=== PATIENT | male | born 1940 | race Caucasian/White ===

== ENCOUNTER 2016-06-26 08:54 | Emergency (ER) | payer OTHER ==
[~2016-06-26] VITALS: Ht 167.6 cm; Wt 91.0 kg
[~2016-06-26 08:54] MED LIST: FOLI1 PO; METO25 PO; SERT100 PO; TAMS0.4C67 PO; THIA100T PO; VITA100T15 PO
[2016-06-26 08:56] VITALS: BP 132/62; PULSE 82; RESP 15; TEMP 98; O2SAT 97
[2016-06-26] MEDS ORDERED: GABA100C4 PO (09:17)
[2016-06-26] MEDS ORDERED: VITA100L BUCCAL (09:17)
[2016-06-26] MEDS ORDERED: THIA100T PO (09:17)
[2016-06-26] MEDS ORDERED: TAMS5CAP PO (09:17)
[2016-06-26] MEDS ORDERED: LISI10TA3 PO (09:17)
[2016-06-26] MEDS ORDERED: ZOLO100T PO (09:17)
[2016-06-26] MEDS ORDERED: RESP: ALBUTEROL 2.5 MG/IPRATROPIUM 0.5 MG NEB (SCH) INH ONE (09:30)
[2016-06-26] MEDS ORDERED: methylPREDNISolone SOD SUCC 125 MG/2 ML VIAL IVP ONE (09:30)
[2016-06-26] MEDS ORDERED: SODIUM CHLORIDE 0.9% FLUSH 10 ML FLUSH IVF PRN (09:30)
[2016-06-26] MEDS: RESP: ALBUTEROL 2.5 MG/3 ML NEB (SCH) INH ×2 (09:39→09:40)
--- NOTE | 2016-06-26 09:40 | PD ---
HPI Chief Complaint: Respiratory Symptoms Time Seen by Provider: 09:26 Travel History International Travel<30 days: No Contact w/Intl Traveler<30days: No Traveled to known affect area: No History of Present Illness HPI Diagnoses a 76-year-old gentleman with a history of hypertension, bronchitis, who presents today with complaints of shortness of breath and cough. Patient states he's had five-day history of what he describes as feeling like he's had the flu. He's had congestion and hacking cough. He denies any fevers or chills but does report that he's had body aches. He states the cough is productive with clear yellow phlegm. He denies any chest pain or chest pressure. He denies true shortness of breath but does state that he feels himself wheezing. The patient denies any other symptoms at this time. PFSH Past Medical History Arthritis: Yes (LOWER ) Depression: Yes Cancer: No Cardiovascular Problems: Yes (HTN ) Diminished Hearing: No Endocrine: No Genitourinary: Yes Hypertension: Yes Kidney Stones: Yes Musculoskeletal: No Neurologic: No Psychiatric: Yes Reproductive: No Respiratory: No Past Surgical History Neurologic Surgery: Yes (LAMINECTOMY LUMBER) Tonsillectomy: Yes Other Surgery: Yes (LAMINECTOMY , ELBOW REPLACEMENT ) Social History Alcohol Use: Yes Tobacco Use: Yes Substance Use: No Allergies-Medications (Allergen,Severity, Reaction): Coded Allergies: No Known Allergies (Unverified , 06/26/16) Reported Meds & Prescriptions Reported Meds & Active Scripts Active Proair Hfa 8.5 GM Inh (Albuterol Sulfate) 90 Mcg/Act Aer 1 Puff INH Q4H PRN 108 mcg/actuation Zithromax Z-Gerardo (Azithromycin) 250 Mg Dspk 250 Mg PO DIRECTED 500 MG (2 tabs) day 1, then 1 tab days 2-5. Medrol Dosepak (Methylprednisolone) 4 Mg Dspk 4 Mg PO DIRECTED Per Pharmacist direction Guaifenesin AC Liq (Guaifenesin-Codeine Liq) 100-10 Mg/5 Ml Syrp 10 Ml PO Q6H PRN Reported Gabapentin 100 Mg Cap 100 Mg PO TID Thiamine (Thiamine HCl) 100 Mg Tab 100 Mg PO DAILY Flomax (Tamsulosin HCl) 0.4 Mg Cap 0.4 Mg PO HS Zoloft (Sertraline HCl) 100 Mg Tab 200 Mg PO HS Lisinopril 10 Mg Tab 10 Mg PO DAILY Vitamin B-12 (Cyanocobalamin) 100 Mcg Lozg 100 Mcg BUCCAL DAILY Review of Systems Except as stated in HPI: all other systems reviewed are Neg General / Constitutional: No: Fever, Chills HENT: Positive: Congestion, No: Headaches, Lightheadedness Cardiovascular: No: Chest Pain or Discomfort, Palpitations Respiratory: Positive: Cough (productive white), Wheezing, No: Shortness of Breath Gastrointestinal: No: Nausea, Vomiting, Abdominal Pain Musculoskeletal: Positive: Myalgias, Pain (body aches) Neurologic: No: Weakness, Dizziness Physical Exam Narrative GENERAL: Well-nourished, well-developed patient, in mild to moderate respiratory distress. SKIN: Focused skin assessment warm/dry. HEAD: Normocephalic/atraumatic. EYES: No scleral icterus. No injection or drainage. NECK: Supple, trachea midline. CARDIOVASCULAR: Regular rate and rhythm without murmurs, gallops, or rubs. RESPIRATORY: Diminished breath sounds bilaterally. Diffuse expiratory wheezes bilateral upper airway GASTROINTESTINAL: Abdomen soft, non-tender, nondistended. MUSCULOSKELETAL: No cyanosis, or edema. NEUROLOGICAL: Awake and alert. Cranial nerves II through XII intact. Motor grossly within normal limits. Five out of 5 muscle strength in all muscle groups. Normal speech. Data Data Last Documented VS Vital Signs Date Time Temp Pulse Resp B/P Pulse Ox O2 Delivery O2 Flow Rate FiO2 06/26/16 09:44 94 21 06/26/16 09:11 86 22 Room Air 06/26/16 08:56 98.0 132/62 Orders Complete Blood Count With Diff (06/26/16 09:30) Basic Metabolic Panel (Bmp) (06/26/16 09:30) Influenzae A/B Antigen (06/26/16 09:30) Iv Access Insert/Monitor (06/26/16 09:30) Ecg Monitoring (06/26/16 09:30) Oximetry (06/26/16 09:30) Oxygen Administration (06/26/16 09:30) Chest, Single Ap (06/26/16 09:30) Sodium Chloride 0.9% Flush (Ns Flush) (06/26/16 09:30) Methylprednisolone So Succ Inj (Solumedr (06/26/16 09:30) Albuterol-Ipratropium Neb (Duoneb Neb) (06/26/16 09:30) Albuterol Neb (Albuterol Neb) (06/26/16 09:30) Sodium Chlor 0.9% 1000 Ml Inj (Ns 1000 M (06/26/16 10:45) Labs Laboratory Tests Test 06/26/16 09:20 White Blood Count 6.5 TH/MM3 Red Blood Count 4.57 MIL/MM3 Hemoglobin 15.2 GM/DL Hematocrit 43.9 % Mean Corpuscular Volume 96.1 FL Mean Corpuscular Hemoglobin 33.4 PG Mean Corpuscular Hemoglobin 34.7 % Concent Red Cell Distribution Width 15.0 % Platelet Count 173 TH/MM3 Mean Platelet Volume 8.2 FL Neutrophils (%) (Auto) 80.9 % Lymphocytes (%) (Auto) 9.0 % Monocytes (%) (Auto) 9.6 % Eosinophils (%) (Auto) 0.2 % Basophils (%) (Auto) 0.3 % Neutrophils # (Auto) 5.2 TH/MM3 Lymphocytes # (Auto) 0.6 TH/MM3 Monocytes # (Auto) 0.6 TH/MM3 Eosinophils # (Auto) 0.0 TH/MM3 Basophils # (Auto) 0.0 TH/MM3 CBC Comment DIFF FINAL Differential Comment Sodium Level 129 MEQ/L Potassium Level 4.2 MEQ/L Chloride Level 95 MEQ/L Carbon Dioxide Level 25.3 MEQ/L Anion Gap 9 MEQ/L Blood Urea Nitrogen 15 MG/DL Creatinine 1.12 MG/DL Estimat Glomerular Filtration 64 ML/MIN Rate Random Glucose 103 MG/DL Calcium Level 8.8 MG/DL [facility] Medical Decision Making Medical Screen Exam Complete: Yes Emergency Medical Condition: Yes Differential Diagnosis Bronchitis versus pneumonia versus viral URI Narrative Course 76-year-old male presents with cough and congestion. Patient states he feels flulike. Patient did test positive for influenza B. He has 5 days in his course and so as out of the window for Tamiflu. He denies any fevers, chills. Chest x-ray shows no evidence of acute infiltrate. White blood cell counts within normal limits. Sodium was 129. Patient was given 1 L of normal saline. The patient has been given Solu-Medrol and nebulized treatments he's much improved. He'll be discharged with a Medrol Dosepak. He'll also be given a prescription for guaifenesin with codeine. He will also be given a prescription for an albuterol inhaler and Z-Gerardo. Diagnosis Primary Impression: Influenza B Additional Impression: Bronchitis Med/Other Pt SpecificInfo: Prescription(s) given Scripts Albuterol 8.5 GM Inh (Proair Hfa 8.5 GM Inh)90 Mcg/Act Aer1 Puff INH Q4H PRN ( SHORTNESS OF BREATH) #1 INHALER Ref 0 108 mcg/actuation Prov:Jhonathan Frye MD 06/26/16 Azithromycin (Zithromax Z-Gerardo)250 Mg [id number] Mg PO DIRECTED #1 DSPK Ref 0 500 MG (2 tabs) day 1, then 1 tab days 2-5. Prov:Jhonathan Frye MD 06/26/16 Methylprednisolone Dosepak (Medrol Dosepak)4 Mg Dspk4 Mg PO DIRECTED #1 DSPK Ref 0 Per Pharmacist direction Prov:Jhonathan Frye MD 06/26/16 Guaifenesin-Codeine Liq (Guaifenesin AC Liq)100-10 Mg/5 Ml Syrp10 Ml PO Q6H PRN (COUGH) #1 BOTTLE Ref 0 Prov:Jhonathan Frye MD 06/26/16 Disposition: 01 DISCHARGE HOME Condition: Stable Jhonathan Frye MD Jun 26, 2016 09:39
[2016-06-26 09:44] VITALS: O2SAT 94
[2016-06-26 09:44] LABS: AUTOMATED NEUTROPHIL # 5.2 TH/MM3 (1.8-7.7); BASOPHIL % 0.3 % (0.0-2.0); EOSINOPHIL % 0.2 % (0.0-4.0); HEMATOCRIT 43.9 % (39.0-51.0); HEMO FLAGS DIFF FINAL; LYMPHOCYTE # 0.6 TH/MM3 (1.0-4.8); MEAN CELL VOLUME 96.1 FL (80.0-100.0); MEAN CORPUSCULAR HEMOGLOBIN 33.4 PG (27.0-34.0); MEAN CORPUSCULAR HGB CONC 34.7 % (32.0-36.0); MONO % 9.6 % (0.0-8.0); NEUT % 80.9 % (16.0-70.0); PLATELET COUNT 173 TH/MM3 (150-450); RED BLOOD COUNT 4.57 MIL/MM3 (4.50-5.90); WHITE BLOOD COUNT 6.5 TH/MM3 (4.0-11.0)
--- NOTE | 2016-06-26 09:51 | RADRPT ---
EXAM DATE/TIME: 06/26/2016 09:32 [facility] COMPARISON: CHEST SINGLE AP, December 31, 2012, 19:02. INDICATIONS : Patient complains of cough and chest pain. MEDICAL HISTORY : None. SURGICAL HISTORY : None. ENCOUNTER: Initial ACUITY: 4 - 6 days PAIN SCORE: 4/10 LOCATION: Bilateral chest FINDINGS: A single view of the chest demonstrates the lungs to be symmetrically aerated without evidence of mas s, infiltrate or effusion. The cardiomediastinal contours are unremarkable. Severe arthritic changes are noted in the right shoulder.. CONCLUSION: No acute disease. Jerry Pinto MD on June 26, 2016 at 9:48 Board Certified Radiologist. This report was verified electronically.
[2016-06-26 09:54] LABS: BICARBONATE 25.3 MEQ/L (21.0-32.0); POTASSIUM 4.2 MEQ/L (3.5-5.1)
[2016-06-26] MEDS ORDERED: SODIUM CHLOR 0.9% 1000 ML INJ 1,000 ML IV ONE (10:45)
[2016-06-26] MEDS ORDERED: ZITHTAB PO (11:13)
[2016-06-26] MEDS ORDERED: MEDR4PAK PO (11:13)
[2016-06-26] MEDS ORDERED: GUAISYP4 PO (11:13)
[2016-06-26] MEDS ORDERED: ALBUAER3 INH (11:19)
== END 2016-06-26 15:29 | disposition home or self-care (01) ==
LOC: NEPE 08:54
DX: J10.1 Influenza due to other identified influenza virus with other respiratory manifestations (principal); J40 Bronchitis, not specified as acute or chronic; I10 Essential (primary) hypertension; Z87.442 Personal history of urinary calculi; Z72.0 Tobacco use
CPT/HCPCS: 71010; 80048; 85025; 87804; 94640; 94664; 96374; 99283; J2930; J7030; J7613